=== PATIENT | female | born 1970 | race Asian ===

== ENCOUNTER 2018-05-31 08:58 | Emergency (ER) | payer OTHER ==
[~2018-05-31] VITALS: Ht 157.5 cm; Wt 59.0 kg
[2018-05-31] MEDS ORDERED: fentaNYL PF VIAL 100 MCG/2 ML VIAL IV ONE (09:30)
[2018-05-31] MEDS ORDERED: IV NORMAL SALINE 1000ML BAG 1,000 ML IV ONE (09:30)
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
[2018-05-31 09:40] LABS: BASO # 0.1 x10^3/uL (0.0-0.2); BASO % 1 % (0-3); EOS # 0.3 x10^3/uL (0.0-0.7); EOS % 3 % (0-3); HEMATOCRIT 40.6 % (36.0-47.0); HEMOGLOBIN 13.4 g/dL (12.0-15.5); LYMPH # 2.6 x10^3/uL (1.0-4.8); LYMPH % 26 % (24-48); MEAN CORPUSCULAR HEMOGLOBIN 28 pg (25-35); MEAN CORPUSCULAR HGB CONC 33 g/dL (31-37); MEAN CORPUSCULAR VOLUME 85 fL (79-100); MONO # 0.6 x10^3/uL (0.0-1.1); MONO % 6 % (0-9); NEUT # 6.5 x10^3uL (1.8-7.7); NEUT % 65 % (31-73); PLATELET COUNT 223 x10^3/uL (140-400); RED BLOOD COUNT 4.77 x10^6/uL (3.50-5.40); RED CELL DISTRIBUTION WIDTH 13.4 % (11.5-14.5); WHITE BLOOD COUNT 10.1 x10^3/uL (4.0-11.0)
--- NOTE | 2018-05-31 09:43 | EKG ---
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
[2018-05-31 09:49] LABS: BILIRUBIN,URINE NEGATIVE (NEG); CLARITY,URINE CLEAR; COLOR,URINE YELLOW; NITRITE,URINE NEGATIVE (NEG); PROTEIN,URINE NEGATIVE (NEG-TRACE); UROBILINOGEN,URINE 0.2 mg/dL (0.2 mg/dL)
[2018-05-31 09:51] LABS: CALCIUM 9.5 mg/dL (8.5-10.1); CREATININE 0.7 mg/dL (0.6-1.0); GFR 90.5; POTASSIUM 3.8 mmol/L (3.5-5.1)
[2018-05-31 09:57] LABS: BACTERIA,URINE MODERATE /HPF (0-FEW); RBC,URINE 0 /HPF (0-2); SQUAMOUS EPITHELIAL CELL,UR MOD /LPF; WBC,URINE 20-40 /HPF (0-4)
[2018-05-31 09:59] LABS: ALBUMIN 4.3 g/dL (3.4-5.0); TOTAL BILIRUBIN 0.3 mg/dL (0.2-1.0); TOTAL PROTEIN 8.8 g/dL (6.4-8.2)
[2018-05-31] MEDS ORDERED: IOHEXOL 300 MG/ML 100ML VIAL. IV ONE (10:00)
[2018-05-31] MEDS ORDERED: CONTRAST GIVEN. MC PRN (10:00)
[2018-05-31] MEDS ORDERED: MORPHINE SULFATE 4 MG/ML VIAL. IV ONE (10:00)
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
[2018-05-31] MEDS ORDERED: HYDR-971 PO (10:57)
[2018-05-31] MEDS ORDERED: CEPH-264 PO (10:59)
[2018-05-31 11:16] VITALS: BP 133/80
== END 2018-05-31 11:20 | disposition home or self-care (01) ==
LOC: ER 08:58
DX: R10.13 Epigastric pain (principal); R07.81 Pleurodynia; Y04.8XXA Assault by other bodily force, initial encounter; Y93.89 Activity, other specified; Y92.89 Other specified places as the place of occurrence of the external cause; Y99.8 Other external cause status
CPT/HCPCS: 36415; 71046; 71260; 74177; 80053; 81001; 81025; 83690; 84484; 85025; 87086; 93005; 96374; 96375; 99285; J2060; J2270; J3010; J7030; Q9967

== ENCOUNTER 2020-12-03 11:25 | Emergency (ER) | payer OTHER ==
[~2020-12-03] VITALS: Ht 160 cm; Wt 54.5 kg
[~2020-12-03 11:25] MED LIST: CEPH-264 PO; HYDR-3164 PO
[2020-12-03] MEDS ORDERED: DEXAMETHASONE 4 MG TABLET PO ONE (13:45)
--- NOTE | 2020-12-03 14:31 | RAD ---
AP portable chest radiograph 12/03/2020 Clinical History: Cough.. An AP erect portable digital radiograph of the chest was obtained. Comparison study is dated 05/31/2018.. The cardiac silhouette is normal in size. The thoracic aorta is mildly tortuous. Patchy perihilar inf iltrates are seen involving both lungs which are most prominent within the lower lobes. No pneumothor ax or pleural effusion is seen. The osseous structures are grossly intact. Impression: Bilateral perihilar infiltrates. Electronically signed by: Vniay Cabrera MD (12/03/2020 2:28 PM) [id number]
[2020-12-03] MEDS ORDERED: AZIT250T PO (14:37)
[2020-12-03] MEDS ORDERED: PRED20TA PO (14:37)
[2020-12-03] MEDS ORDERED: BENZ100C PO (14:37)
--- NOTE | 2020-12-03 14:37 | PHYS DOC ---
Past Medical History Past Medical History: Diabetes-Type II, Hypertension Past Surgical History: Other Additional Past Surgical Histo: TWIN Smoking Status: Never Smoker Alcohol Use: None Drug Use: None General Adult EDM: Chief Complaint: COUGH HPI: HPI: Patient is a 49 year old [f__sex] who presents with [] Review of Systems: Review of Systems: Constitutional: Denies fever or chills. [] Eyes: Denies change in visual acuity. [] HENT: Denies nasal congestion or sore throat. [] Respiratory: Denies cough or shortness of breath. [] Cardiovascular: Denies chest pain or edema. [] GI: Denies abdominal pain, nausea, vomiting, bloody stools or diarrhea. [] : Denies dysuria. [] Musculoskeletal: Denies back pain or joint pain. [] Integument: Denies rash. [] Neurologic: Denies headache, focal weakness or sensory changes. [] Endocrine: Denies polyuria or polydipsia. [] Lymphatic: Denies swollen glands. [] Psychiatric: Denies depression or anxiety. [] Heart Score: Risk Factors: Risk Factors: DM, Current or recent (<one month) smoker, HTN, HLP, family history of CAD, obesity. Risk Scores: Score 0 - 3: 2.5% MACE over next 6 weeks - Discharge Home Score 4 - 6: 20.3% MACE over next 6 weeks - Admit for Clinical Observation Score 7 - 10: 72.7% MACE over next 6 weeks - Early Invasive Strategies Current Medications: Current Medications Medications (Trade) Dose Ordered Sig/Donis Start Time Stop Time Status Last Admin Dose Admin Dexamethasone (Decadron) 10 mg 1X ONCE 12/03/20 13:45 12/03/20 13:46 DC Allergies: Allergies: Allergies Coded Allergies Type Severity Reaction Last Updated Verified No Known Drug Allergies 05/31/18 No Physical Exam: PE: Constitutional: Well developed, well nourished, no acute distress, non-toxic appearance. [] HENT: Normocephalic, atraumatic, bilateral external ears normal, oropharynx moist, no oral exudates, nose normal. [] Eyes: PERRLA, EOMI, conjunctiva normal, no discharge. [] Neck: Normal range of motion, no tenderness, supple, no stridor. [] Cardiovascular:Heart rate regular rhythm, no murmur [] Lungs & Thorax: Bilateral breath sounds clear to auscultation [] Abdomen: Bowel sounds normal, soft, no tenderness, no masses, no pulsatile masses. [] Skin: Warm, dry, no erythema, no rash. [] Back: No tenderness, no CVA tenderness. [] Extremities: No tenderness, no cyanosis, no clubbing, ROM intact, no edema. [] Neurologic: Alert and oriented X 3, normal motor function, normal sensory function, no focal deficits noted. [] Psychologic: Affect normal, judgement normal, mood normal. [] Current Patient Data: Vital Signs: Vital Signs Date Time Temp Pulse Resp B/P (MAP) Pulse Ox O2 Delivery O2 Flow Rate FiO2 12/03/20 13:00 98.8 73 18 97/66 (76) 98 Room Air 98.8 EKG: EKG: [] Radiology/Procedures: Radiology/Procedures: [] Course & Med Decision Making: Course & Med Decision Making Pertinent Labs and Imaging studies reviewed. (See chart for details) [] Dragon Disclaimer: Dragon Disclaimer: This electronic medical record was generated, in whole or in part, using a voice recognition dictation system. Departure Departure Impression: Primary Impression: Atypical pneumonia Additional Impression: Suspected COVID-19 virus infection Disposition: HOME / SELF CARE / HOMELESS Condition: STABLE Referrals: UNKNOWN PCP NAME (PCP) Patient Instructions: Pneumonia, Adult, Tvux-[id number] Additional Instructions: You have been tested for or diagnosed with COVID-19. It is an infection caused by a new type of coronavirus. COVID-19 will cause cold-like or mild flu symptoms in most. It can cause more severe symptoms like problems breathing in some. There is no treatment for COVID-19. The body will clear the infection over time. Self-care will help to ease discomfort. Steps to Take: Self-Care Rest as needed. Healthy habits may help you feel better. Steps include: Choose healthy foods including fruits and vegetables. Drink water throughout the day. Get plenty of sleep each night. If you smoke, try to quit. It may ease breathing. Avoid alcohol. Keep Others Healthy The virus can spread to others. Droplets are released every time you sneeze or cough. The droplets can get into the mouth, nose, or eyes of people near you and lead to infection. To lower the chances of spreading COVID-19 to others: Stay at home until your doctor has said it is safe to leave. If you tested positive this will mean staying isolated until both of the following are true: At least 7 days have passed since the start of illness. You are free of fever for at least 72 hours without the use of medicine. During this time: - Avoid public areas, events, or transportation. Do not return to work or school until your doctor has said it is safe to do so. - Call ahead if you need to go to a medical center. Let them know you may have COVID-19. It will help them guide you where to go. They may also ask you to wear a facemask when you come to the office. - If you call for emergency medical services, let them know you may have COVID- 19. While at home: - Try to avoid close contact with others. Stay about 6 feet away. - If possible, spend most of your time in a separate room from others. - Use a face mask if you will be in close contact with others such as sharing a room or vehicle. - Have someone wipe down common surfaces in the home. Use household dewaterer operator every day on areas like doorknobs, counters, or sinks. - Cough or sneeze into a tissue. Throw the tissue away right after use. If a tissue is not available, cough or sneeze into your elbow. - Wash your hands often. Wash them after sneezing or coughing. Use soap and water and wash for at least 20 seconds. Alcohol based hand glove cleaner can be used if soap and water is not available. - Do not prepare food for others. Avoid sharing personal items like forks, spoons, or toothbrushes. - Avoid close contact with pets while you are sick. There is no evidence of the virus passing to pets. This is a safety step until more is known about this virus. Isolation can be frustrating. Social interaction can help. Keep in touch with friends and family through phone and tech options. You can still interact with others in your home, just keep a safe distance of about 6 feet. Follow-up: Your doctors office will check in with you to see if there are any changes in your health. You may be asked to keep track of symptoms to share with them. They will also let you know when you are clear to be in public again. Problems to Look Out For: Contact your doctor if your recovery is not going as you expect. Get emergency care if you have problems such as: - Trouble breathing - Nonstop chest pain or pressure - Changes in awareness, confusion, or problems waking - Lips or face have bluish color - Worsening of symptoms If you think you have an emergency, call for emergency medical services right away. [facility] Scripts Prednisone (PREDNISONE) 20 Mg Tablet 2 TAB PO DAILY for 4 Days, #8 TAB Start this prescription tomorrow, Friday12/04/20 Prov: ILENE BAL DO 12/03/20 Benzonatate (TESSALON PERLE) 100 Mg Capsule 100 MG PO TID PRN for COUGH, #20 CAP Prov: ILENE BAL DO 12/03/20 Azithromycin (ZITHROMAX) 250 Mg Tablet 1 PKG PO UD for Pneumonia, #6 TAB Take 2 tablets on day 1 and then 1 tablet each day for the next 4 days as directed Prov: ILENE BAL DO 12/03/20 ILENE BAL DO December 03, 2020 14:37
[2020-12-03 15:30] VITALS: BP 98/63
--- NOTE | 2020-12-04 12:17 | NUR ---
IP: Attempted to contact pt concerning COVID results. No answer, left a voicemail to return the call.
--- NOTE | 2020-12-05 10:03 | NUR ---
IP: Attempted to contact pt concerning COVID results. No answer, left a second voicemail.
== END 2020-12-03 15:30 | disposition home or self-care (01) ==
LOC: ER 11:25
DX: U07.1 COVID-19 (principal); J18.9 Pneumonia, unspecified organism; E11.9 Type 2 diabetes mellitus without complications; I10 Essential (primary) hypertension
CPT/HCPCS: 71045; 99284; U0003; U0005

== ENCOUNTER 2021-08-22 18:18 | Emergency (ER) | payer OTHER ==
[~2021-08-22] VITALS: Ht 157.5 cm; Wt 72.7 kg
[~2021-08-22 18:18] MED LIST changes: +AZIT250T PO; +BENZ100C PO; +PRED20TA PO
[2021-08-22 19:41] VITALS: BP 157/79
[2021-08-22] MEDS ORDERED: FAMO20TA5 PO (20:00)
[2021-08-22] MEDS ORDERED: TRIA80OI TP (20:00)
[2021-08-22] MEDS ORDERED: HYDR25TA PO (20:00)
[2021-08-22] MEDS ORDERED: PRED-220 PO (20:00)
[2021-08-22] MEDS ORDERED: methylPREDNISolone SOD SUCC PF 125 MG/2 ML VIAL. IM ONE (20:00)
[2021-08-22] MEDS ORDERED: FAMOTIDINE 20 MG TABLET. PO ONE (20:00)
--- NOTE | 2021-08-22 20:00 | PHYS DOC ---
Past Medical History Past Medical History: Diabetes-Type II, Hypertension Past Surgical History: Other Additional Past Surgical Histo: TWIN Smoking Status: Never Smoker Alcohol Use: None Drug Use: None General Adult EDM: Chief Complaint: ITCHING HPI: HPI: Patient is a 50 year old female presented to the ED today complaining of a pruritic rash that began 3 days ago. Patient states she has tried over-the- counter remedies including Tylenol, ibuprofen, Benadryl p.o. as well as topical with no relief. Denies any new contacts. Denies any new foods. Review of Systems: Review of Systems: Constitutional: Denies fever or chills. [] Musculoskeletal: Denies back pain or joint pain. [] Integument: Reports a pruritic rash Neurologic: Denies headache, focal weakness or sensory changes. [] Endocrine: Denies polyuria or polydipsia. [] ] Psychiatric: Denies depression or anxiety. [] Heart Score: C/O Chest Pain: N/A Risk Factors: Risk Factors: DM, Current or recent (<one month) smoker, HTN, HLP, family history of CAD, obesity. Risk Scores: Score 0 - 3: 2.5% MACE over next 6 weeks - Discharge Home Score 4 - 6: 20.3% MACE over next 6 weeks - Admit for Clinical Observation Score 7 - 10: 72.7% MACE over next 6 weeks - Early Invasive Strategies Current Medications: Current Medications Medications (Trade) Dose Ordered Sig/Donis Start Time Stop Time Status Last Admin Dose Admin Famotidine (Pepcid) 20 mg 1X ONCE 08/22/21 20:00 08/22/21 20:01 Methylprednisolone Sodium Succinate (SOLU-Medrol 125MG VIAL) 125 mg 1X ONCE 08/22/21 20:00 08/22/21 20:01 Allergies: Allergies: Allergies Coded Allergies Type Severity Reaction Last Updated Verified No Known Drug Allergies 05/31/18 No Physical Exam: PE: Constitutional: Well developed, well nourished, no acute distress, non-toxic appearance. []] Skin: Patient's skin is covered with calamine lotion making exam difficult but is flaky/peeling skin from patient itching noted on bilateral upper extremities, abdomen and flank bilaterally. Back: No tenderness, no CVA tenderness. [] Extremities: No tenderness, no cyanosis, no clubbing, ROM intact, no edema. [] Neurologic: Alert and oriented X 3, normal motor function, normal sensory function, no focal deficits noted. [] Psychologic: Affect normal, judgement normal, mood normal. [] EKG: EKG: [] Radiology/Procedures: Radiology/Procedures: [] Course & Med Decision Making: Course & Med Decision Making Pertinent Labs and Imaging studies reviewed. (See chart for details) This is a 50-year-old female patient presented to the ED today with a pruritic rash that began 3 days ago. She took Benadryl 1 hour prior to coming to the ED, she was given Pepcid and Solu-Medrol in the ED. She was discharged with tapered dose of prednisone, hydroxyzine, Pepcid. Nguyễn Disclaimer: Nguyễn Disclaimer: This electronic medical record was generated, in whole or in part, using a voice recognition dictation system. Departure Departure Impression: Primary Impression: Contact dermatitis Qualified Codes: L25.9 - Unspecified contact dermatitis, unspecified cause Disposition: HOME / SELF CARE / HOMELESS Condition: STABLE Referrals: UNKNOWN PCP NAME (PCP) Follow-up with your doctor in 1 week Patient Instructions: Contact Dermatitis, [id number] Additional Instructions: You were evaluated in the emergency room for a rash, use the prescribed medications as ordered. Follow-up with your doctor in 1 to 2 weeks Scripts Triamcinolone Acetonide (TRIAMCINOLONE ACETONIDE) 80 Gm Oint...g. 1 JONNIE TP BID, #80 GM 1 Refill Prov: THAD GROSS APRN 08/22/21 Famotidine (FAMOTIDINE) 20 Mg Tablet 20 MG PO DAILY, #7 TAB Prov: THAD GROSS APRN 08/22/21 Hydroxyzine Hcl (HYDROXYZINE HCL) 25 Mg Tablet 1 TAB PO TID, #90 TAB 2 Refills Prov: THAD GROSS APRN 08/22/21 Prednisone (PREDNISONE ) 10 Mg Tablet 10 MG PO UD, #30 TAB 0 Refills Take 5 tablets by mouth daily for 2 days, then take 4 tablets by mouth daily for 2 days, then take 3 tablets by mouth daily for 2 days, then take 2 tablets by mouth daily for 2 days, then take 1 tablets by mouth daily for 2 days, then stop. Prov: THAD GROSS APRN 08/22/21 THAD GROSS APRN Aug 22, 2021 20:00
== END 2021-08-22 20:14 | disposition home or self-care (01) ==
LOC: ER 18:18
DX: L25.9 Unspecified contact dermatitis, unspecified cause (principal); I10 Essential (primary) hypertension; E11.9 Type 2 diabetes mellitus without complications
CPT/HCPCS: 96372; 99283; J2930